=== PATIENT | female | born 1955 | race Caucasian/White ===

== ENCOUNTER 2023-01-15 07:22 | Outpatient (CLI) | payer MEDICARE, OTHER ==
[2023-01-15] VITALS (18 sets, daily range): BP systolic 98–129; BP diastolic 54–76
== END 2023-01-15 23:59 | disposition home or self-care (01) ==
LOC: CARD DIAG 07:22
PROVIDERS: ATTEND Internal Medicine Interventional Cardiology
DX: R55 Syncope and collapse (principal)
CPT/HCPCS: 93660